=== PATIENT | male | born 1995 | race Two or more races ===

== ENCOUNTER 2025-09-24 04:43 | Inpatient (IN) | payer MEDICAID, OTHER ==
[~2025-09-24] VITALS: Ht 182.9 cm; Wt 95.5 kg
[2025-09-24 05:31] LABS: Hemoglobin 19.5 g/dL (13.5-17.5); Mean Corpuscular Hemoglobin 31.5 pg (28.0-32.0); Mean Corpuscular Volume 91.6 fL (80.0-100.0); Nucleated Red Blood Cells % 0.3 %
[2025-09-24 05:33] LABS: Potassium 3.8 mmol/L (3.5-5.1); Sodium 143 mmol/L (136-145)
[2025-09-24 05:34] LABS: Anion Gap 12 (5-15); Calcium 9.2 mg/dL (8.7-10.4); Carbon Dioxide 22 mmol/L (20-31)
[2025-09-24 05:35] LABS: Hematocrit 56.6 % (41.0-53.0)
[2025-09-24 05:37] LABS: Chloride 109 mmol/L (98-107)
[2025-09-24 05:39] LABS: BUN/Creatinine Ratio 8.2 (10.0-20.0); Glucose 95 mg/dL (74-106)
[2025-09-24 05:46] LABS: Blood Urea Nitrogen 7 mg/dL (9-23)
[2025-09-24] MEDS: IOHEXOL 300 MG/ML 100ML BOTTLE IJ ONE (05:57)
--- NOTE | 2025-09-24 06:22 | ED.PDOC ---
GI ASSESSMENT HPI Comments This is a 30 year-old male who presents to the ED with a chief complaint of rectal pain and constipation for X5 days. Patient reports no BM for X5 days due to intense rectal pain. Patient reports this happening before, X4 years ago, where rectal pain was caused by cyst the size of a quarter. Patient reports he usually has a BM daily. Patient has no further complaints at this time and otherwise denies further associated symptoms of fever, chills, N/V/D, or fatigue. Chief Complaint: Rectal Pain Time Seen by MD: 06:26 Reviewed Notes: Nurses Notes, Medications, Allergies Allergies: Coded Allergies: NO KNOWN ALLERGIES (Unverified , 09/24/25) Information Source: Patient Mode of Arrival: Ambulatory Timing: Days Duration: Since onset Severity: Moderate Associated sign and symptoms: Constipation, Other (rectal pain ) Past Medical History PAST MEDICAL HISTORY: Denies Surgical History: Denies all surgeries Family History Family History: Reviewed,noncontributory to illness, No family hx of Cancer, No family hx of DM, No family hx of Heart ariadna, No family hx of HTN, No family hx ofKidney ariadna, No family hx of Liver ariadna, No family hx of Lung ariadna, No family hx of Stroke Social History Smoker: Non-Smoker Alcohol: Denies ETOH Use Drugs: Denies Drug Use Lives In: Home Constitutional: denies: chills, diaphoresis, fatigue, fever, malaise, sweats, weakness, others EENTM: denies: blurred vision, double vision, ear bleeding, ear discharge, ear drainage, ear pain, ear ringing, eye pain, eye redness, hearing loss, mouth pain , mouth swelling, nasal discharge, nose bleeding, nose congestion, nose pain, photophobia, tearing, throat pain, throat swelling, voice changes, others Respiratory: denies: cough, hemoptysis, orthopnea, SOB at rest, shortness of breath, SOB with excertion, stridor, wheezing, others Cardiovascular: denies: chest pain, dizzy spells, diaphoresis, Dyspnea on exertion, edema, irregular heart beat, left arm pain, lightheadedness, palpitations, PND, syncope, others Gastrointestinal: reports: constipated, rectal pain; denies: abdomen distended, abdominal pain, blood streaked bowels, diarrhea, dysphagia, difficulty swallowing, hematemesis, melena, nausea, poor appetite, poor fluid intake, rectal bleeding, vomiting, others Genitourinary: denies: burning, dysuria, flank pain, frequency, hematuria, incontinence, penile discharge, penile sore, pain, testicle pain, testicle swelling, urgency, others Neurological: denies: dizziness, fainting, headache, left sided numbness, left sided weakness, numbness, paresthesia, pre-existing deficit, right sided numbness, right sided weakness, seizure, speech problems, tingling, tremors, weakness, others Musculoskeletal: denies: back pain, gout, joint pain, joint swelling, muscle pain, muscle stiffness, neck pain, others Integumetry: denies: bruises, change in color, change in hair/nails, dryness, laceration, lesions, lumps, rash, wounds, others Allergic/Immunocompromised: denies: Difficulty Healing, Frequent Infections, Hives, Itching, others Hematologic/Lymphatic: denies: anemia, blood clots, easy bleeding, easy bruising, swollen glands, others Endocrine: denies: excessive hunger, excessive sweating, excessive thirst, excessive urination, flushing, intolerance to cold, intolerance to heat, unexplained weight gain, unexplained weight loss, others Psychiatric: denies: anxiety, bipolar disorder, depression, hopeless, panic disorder, schizophrenia, sleepless, suicidal, others All Other Systems: Reviewed and Negative Physical Exam General Appearance: Moderate Distress HEENT: Normal ENT Inspection, Pharynx Normal, TMs Normal Neck: Full Range of Motion, Non-Tender, Normal, Normal Inspection Respiratory: Chest Non-Tender, Lungs Clear, No Accessory Muscle Use, No Respiratory Distress, Normal Breath Sounds Cardiovascular: No Edema, No JVD, No Murmur, No Gallop, Normal Peripheral Pulses, Regular Rate/Rhythm Breast Exam: Deferred Gastrointestinal: No Organomegaly, Non Tender, No Pulsatile Mass, Normal Bowel Sounds, Soft Genitalia: Deferred Pelvic: Deferred Rectal: Deferred Extremities: No calf tenderness, Normal capillary refill, Normal inspection, Normal range of motion, Non-tender, No pedal edema Musculoskeletal : Apperance: Normal Neurologic: Alert, electronics engineering technologist II-XII nml as Tested, No Motor Deficits, Normal Affect, Normal Mood, No Sensory Deficits Cerebellar Function: Normal Reflexes: Normal Skin: Dry, Normal Color, Warm Peripheral Pulses: 3+ Radial (R), 3+ Radial (L) Lymphatic: No Adenopathy Was a procedure done? Was a procedure done?: No GI differential Dx Differential Diagnosis: Constipation, Diverticular disease, Esophagitis, Gastritis/PUD, Gastroenteritis, Inflammatory BD, Dehydration, Food Poisoning, Bacterial, Parasitic, Viral X-Ray, Labs, Meds, VS Vital Signs Date Time Temp Pulse Resp B/P (MAP) Pulse Ox O2 Delivery O2 Flow Rate FiO2 09/24/25 05:18 94 20 95 Room Air 09/24/25 04:54 98.2 94 20 122/80 95 98.2 Lab Test 09/24/25 05:10 Range/Units White Blood Count 8.3 4.4-10.8 10^3/uL Red Blood Count 6.18 H 4.5-5.90 10^6/uL Hemoglobin 19.5 H 13.5-17.5 g/dL Hematocrit 56.6 H 41.0-53.0 % Mean Corpuscular Volume 91.6 80.0-100.0 fL Mean Corpuscular Hemoglobin 31.5 28.0-32.0 pg Mean Corpuscular Hemoglobin Concent 34.4 32.0-36.0 g/dL Red Cell Distribution Width 14.0 11.8-14.3 % Platelet Count 285 140-450 10^3/uL Mean Platelet Volume 8.2 6.9-10.8 fL Neutrophils (%) (Auto) 56.2 37.0-80.0 % Lymphocytes (%) (Auto) 35.6 10.0-50.0 % Monocytes (%) (Auto) 6.0 0.0-12.0 % Eosinophils (%) (Auto) 1.4 0.0-7.0 % Basophils (%) (Auto) 0.8 0.0-2.0 % Neutrophils # (Auto) 4.7 1.6-8.6 10 ^3/uL Lymphocytes # (Auto) 3.0 0.4-5.4 10 ^3/uL Monocytes # (Auto) 0.5 0-1.3 10 ^3/uL Eosinophils # (Auto) 0.1 0-0.8 10 ^3/uL Basophils # (Auto) 0.1 0-0.2 10 ^3/uL Nucleated Red Blood Cells 0.3 % Sodium Level 143 136-145 mmol/L Potassium Level 3.8 3.5-5.1 mmol/L Chloride Level 109 H 98-107 mmol/L Carbon Dioxide Level 22 20-31 mmol/L Anion Gap 12 5-15 Blood Urea Nitrogen 7 L 9-23 mg/dL Creatinine 0.85 0.700-1.30 mg/dL Glomerular Filtration Rate Calc 119 >90 mL/min BUN/Creatinine Ratio 8.2 L 10.0-20.0 Serum Glucose 95 74-106 mg/dL Lactic Acid Level 1.8 0.4-2.0 mmol/L Calcium Level 9.2 8.7-10.4 mg/dL [place] [address] Ph: [phone] DIAGNOSTIC IMAGING Diagnostic Imaging Report : [id number] Signed PATIENT: SALINA ABBOTTCCT: [id number] UNIT: [id number] : 1995 LOC: ER ROOM / BED: / AGE / SEX: 30 / M ADM STATUS: REG ER SERVICE 0501 ORDERING PHYSICIAN: KAREN LIVINGSTON DO PROCEDURE(s): ABPLIV - CT AB PEL WITH IV CON ONLY REASON: rectal pain, rectal cyst ORDER NUMBER(s): [id number], ACCESSION NUMBER(s): [id number] Exam: CT CT AB PEL WITH IV CON ONLY History: rectal pain, rectal cyst Comparison Study: None Contrast: 100 cc of Omnipaque 300 TECHNIQUE: CT imaging of the abdomen and pelvis was obtained following the administration of intravenous contrast. Coronal and sagittal reformatted images were reviewed. All CT scans at this medical facility are performed using dose modulation techniques as appropriate to a performed exam including the following: Automated exposure control was utilized; adjustment of the MA and/or KV according to patient size; and use of iterative reconstruction technique. Radiation Dose Information: CT Dose: CTDI volume is 15.93 mGy. Dose-length product is 1142.41 mGy.cm mGy*cm FINDINGS: Imaged portions of the lung bases appear unremarkable. There is diffuse hepatic steatosis. Gallbladder appears mildly prominent without pericholecystic fluid or wall thickening. Spleen, pancreas, and adrenal glands appear unremarkable. The kidneys enhance symmetrically. No evidence of bowel obstruction or focal bowel wall thickening. The appendix appears normal. Scattered colonic diverticulosis. No free fluid, free air, or adenopathy. The prostate gland appears normal in size. Specific attention to the rectum reveals no suspicious abnormality. At the anus, there is mild fullness measuring 0.9 cm. No significant fat stranding or air. IMPRESSION: 1. No acute abnormality identified in the abdomen or pelvis. 2. Mild fullness at the anus measuring 0.9 cm. Correlation with clinical exam is recommended no significant fat stranding or air. 3. Hepatic steatosis. Patient alert. Came in because of rectal pain. Possible cyst. Vitals stable. Answering questions. CT of the abdomen pelvis does not reveal any acute process possibly assist. Surgical consultation. Was given pain medication. Explained to the patient. Continue monitoring. Time of 1ST Reevaluation: 07:15 Reevaluation 1ST: Unchanged Patient Education/Counseling: Diagnosis, Treatment Family Education/Counseling: No Family Present SEPSIS Sepsis Screen Date sepsis recognized/suspect: Sep 24, 2025 Time Sepsis recognized/suspect: 453 Recent Procedure: No On Antibiotic Therapy: No Respiratory Rate >20: No Heart Rate >90: Yes Temp<36 C (96.8 F) or >38.3 C: No SBP <90 or MAP <65 mmHG: No New Acute Mental Status Change: No Is the patient on CPAP, BIPAP,: No Physician Orders Ct Ab Pel With Iv Con Only (09/24/25 05:01) Vital Signs Date Time Temp Pulse Resp B/P (MAP) Pulse Ox O2 Delivery O2 Flow Rate FiO2 09/24/25 05:18 94 20 95 Room Air 09/24/25 04:54 98.2 94 20 122/80 95 98.2 Laboratory Tests Test 09/24/25 05:10 Lactic Acid Level 1.8 mmol/L (0.4-2.0) White Blood Count 8.3 10^3/uL (4.4-10.8) Departure 1 Departure Time of Disposition: 07:12 Impression: Primary Impression: Rectal cyst Disposition: ADMITTED INPATIENT Admit to: Med Surg Condition: Guarded Critical Care Note Critical Care Time?: No Stability Stability form required: No Heart Score Heart Score: Heart Score Response (Comments) Value History N/A 0 EKG N/A 0 Age N/A 0 Risk Factors N/A 0 Troponin N/A 0 Total 0 I personally scribed for CARLA VASQUES MD ([email or web address]) on 09/24/25 at 06:22. Electronically submitted by An Phillips ([email or web address]). I personally scribed for CARLA VASQUES MD ([email or web address]) on 09/24/25 at 06:52. Electronically submitted by An Phillips ([email or web address]). CARLA VASQUES MD Sep 24, 2025 06:22
--- NOTE | 2025-09-24 06:40 | DVH ---
Exam: CT CT AB PEL WITH IV CON ONLY History: rectal pain, rectal cyst Comparison Study: None Contrast: 100 cc of Omnipaque 300 TECHNIQUE: CT imaging of the abdomen and pelvis was obtained following the administration of intraven ous contrast. Coronal and sagittal reformatted images were reviewed. All CT scans at this medical facility are performed using dose modulation techniques as appropriate t o a performed exam including the following: Automated exposure control was utilized; adjustment of th e MA and/or KV according to patient size; and use of iterative reconstruction technique. Radiation Dose Information: CT Dose: CTDI volume is 15.93 mGy. Dose-length product is 1142.41 mGy.cm mGy*cm FINDINGS: Imaged portions of the lung bases appear unremarkable. There is diffuse hepatic steatosis. Gallbladder appears mildly prominent without pericholecystic flui d or wall thickening. Spleen, pancreas, and adrenal glands appear unremarkable. The kidneys enhance symmetrically. No evidence of bowel obstruction or focal bowel wall thickening. The appendix appears normal. Scatt ered colonic diverticulosis. No free fluid, free air, or adenopathy. The prostate gland appears norm al in size. Specific attention to the rectum reveals no suspicious abnormality. At the anus, there is mild fullne ss measuring 0.9 cm. No significant fat stranding or air. IMPRESSION: 1. No acute abnormality identified in the abdomen or pelvis. 2. Mild fullness at the anus measuring 0.9 cm. Correlation with clinical exam is recommended no signi ficant fat stranding or air. 3. Hepatic steatosis.
[2025-09-24] MEDS: KETOROLAC TROMETH 30 MG/ML 1ML VIAL IV ONE (07:36)
[2025-09-24 07:46] VITALS: PULSE 64; RESP 16; O2SAT 95
--- NOTE | 2025-09-24 08:26 | DVHHPRES ---
History of Present Illness Resident Creating Document: NIVIA PEDERSON History of Present Illness Raudel Trevino is a 30 year old male patient who presents to the ED with chief complaint of constipation for the past five days associated with perirectal pain. Patient reports history of rectal cyst status postop proximally seven years ago, symptoms are similar to when he had the perirectal cyst removed. Patient also reports weeks urine stream but no dysuria, nausea, vomiting, fever, chills or any other associated symptoms. Past medical history: Rectal cyst status postop Surgical history: Left forearm radial reconstruction after trauma. Rectal cyst removal seven years ago Family history: Noncontributory Social history: Lives in [place] with family (next of kin mother). Drink five shots of vodka the day he drinks (normally during weekends). Smokes marijuana occasionally. Denies current tobacco and other drug abuse. Allergies: Denies Home medication: Stool softeners Patient seen and examined at bedside. Currently has no other new complaints. Patient did take stool softeners and had small bowel movement on 09/24/2025 Past Medical History Per HPI Past Surgical History Per HPI Family History Per HPI Past Social History Per HPI Review of Systems Review of Systems Per HPI Allergies: Coded Allergies: NO KNOWN ALLERGIES (Unverified , 09/24/25) Exam Vital Signs Vital Signs Date Time Temp Pulse Resp B/P (MAP) Pulse Ox O2 Delivery O2 Flow Rate FiO2 09/24/25 07:46 64 16 95 Room Air* 0 21 09/24/25 07:45 98.2 112/73 (86) 98.2 Exam Patient lying in bed, in no acute distress General: Lucid, afebrile, mucosae are moist Cardiovascular: Normal S1 and S2. No murmurs, gallops or rubs Respiratory: Normal ventilation mechanics. Clear lung sounds on auscultation Abdomen: Soft, nontender, no organomegaly, normal bowel sounds. Completed digital rectal exam with palpation of hard mass in hour 11:00 a.m., no fluctuating masses, nor erythema seen, no fecal impaction, prostate is elastic on palpation. MSK/skin: Mobilizes 4 limbs. Skin is dry and warm Neurological: Oriented in 3 spheres. No motor no sensitive deficits. Pupils are isocoric and reactive Labs/Xrays Labs Test 09/24/25 05:10 Range/Units White Blood Count 8.3 4.4-10.8 10^3/uL Red Blood Count 6.18 H 4.5-5.90 10^6/uL Hemoglobin 19.5 H 13.5-17.5 g/dL Hematocrit 56.6 H 41.0-53.0 % Mean Corpuscular Volume 91.6 80.0-100.0 fL Mean Corpuscular Hemoglobin 31.5 28.0-32.0 pg Mean Corpuscular Hemoglobin Concent 34.4 32.0-36.0 g/dL Red Cell Distribution Width 14.0 11.8-14.3 % Platelet Count 285 140-450 10^3/uL Mean Platelet Volume 8.2 6.9-10.8 fL Neutrophils (%) (Auto) 56.2 37.0-80.0 % Lymphocytes (%) (Auto) 35.6 10.0-50.0 % Monocytes (%) (Auto) 6.0 0.0-12.0 % Eosinophils (%) (Auto) 1.4 0.0-7.0 % Basophils (%) (Auto) 0.8 0.0-2.0 % Neutrophils # (Auto) 4.7 1.6-8.6 10 ^3/uL Lymphocytes # (Auto) 3.0 0.4-5.4 10 ^3/uL Monocytes # (Auto) 0.5 0-1.3 10 ^3/uL Eosinophils # (Auto) 0.1 0-0.8 10 ^3/uL Basophils # (Auto) 0.1 0-0.2 10 ^3/uL Nucleated Red Blood Cells 0.3 % Sodium Level 143 136-145 mmol/L Potassium Level 3.8 3.5-5.1 mmol/L Chloride Level 109 H 98-107 mmol/L Carbon Dioxide Level 22 20-31 mmol/L Anion Gap 12 5-15 Blood Urea Nitrogen 7 L 9-23 mg/dL Creatinine 0.85 0.700-1.30 mg/dL Glomerular Filtration Rate Calc 119 >90 mL/min BUN/Creatinine Ratio 8.2 L 10.0-20.0 Serum Glucose 95 74-106 mg/dL Lactic Acid Level 1.8 0.4-2.0 mmol/L Calcium Level 9.2 8.7-10.4 mg/dL SEPSIS Sepsis Screen Date sepsis recognized/suspect: Sep 24, 2025 Time Sepsis recognized/suspect: 0454 Recent Procedure: No On Antibiotic Therapy: No Respiratory Rate >20: No Heart Rate >90: Yes Temp<36 C (96.8 F) or >38.3 C: No SBP <90 or MAP <65 mmHG: No New Acute Mental Status Change: No Is the patient on CPAP, BIPAP,: No Physician Orders Ct Ab Pel With Iv Con Only (09/24/25 05:01) Vital Signs Date Time Temp Pulse Resp B/P (MAP) Pulse Ox O2 Delivery O2 Flow Rate FiO2 09/24/25 07:46 64 16 95 Room Air* 0 21 09/24/25 07:45 98.2 62 16 112/73 (86) 95 98.2 09/24/25 05:18 94 20 95 Room Air 09/24/25 04:54 98.2 94 20 122/80 95 98.2 Laboratory Tests Test 09/24/25 05:10 Lactic Acid Level 1.8 mmol/L (0.4-2.0) White Blood Count 8.3 10^3/uL (4.4-10.8) Medications Medications Dose Ordered Sig/Emile Route Start Time Stop Time Status Last Admin Dose Admin Ketorolac Tromethamine 30 mg ONCE ONCE IV 09/24/25 07:15 09/24/25 07:16 DC 09/24/25 07:36 30 MG Assessment/Plan Assessment/Plan ASSESSMENT Rule out perirectal abscess Probable rectal cyst Constipation Ruled out bowel obstruction Hepatic steatosis History of rectal cyst - s/p resection Ethanol abuse Polycythemia PLAN Indicated IV fluids, patient initially NPO, currently progress to clear liquid diet Obtain abdomen and pelvis CT which shows mild fullness of anus of 0.9 cm with no fat stranding. Obtain pancultures (blood, stool, urine) Hold on and IV antibiotics since patient is septic. Completed digital rectal exam which evidence palpable 11:00 a.m. mass that is non fluctuating, nor erythema. Consulted surgical technologist. Indicated stool softeners/laxatives Goals of care discussed with patient for over 18 minutes: Full code status Discussed plan with Dr. Arias, patient and nurses: Patient will be admitted to [facility]. Consulted surgical technologist to evaluate perirectal mass. Ordered pancultures, hold on IV antibiotics since there are no clear signs of s epsis. Plan discussed with: Patient, Other (Nurses) Date of Service: Sep 24, 2025 Billing Provider: MARTY ARIAS MD Common Visit Codes: 54725-[id number] INP/OBS CARE (HIGH) Secondary Visit Codes: 83966-[id number] CARE PLAN 30 MINUTES NIVIA PEDERSON RESIDENT Sep 24, 2025 08:26
[2025-09-24] MEDS ORDERED: ACETAMINOPHEN 325 MG TAB PO PRN (08:30)
[2025-09-24] MEDS ORDERED: MORPHINE SULFATE INJ 2 MG/ml SYRG IV PRN (08:30)
[2025-09-24] MEDS ORDERED: POLYETHYLENE GLYCOL 17 GM PWDR PO PRN (08:30)
[2025-09-24 09:36] LABS: INR 1.04 (0.9-1.15); Partial Thromboplastin Time 28.3 SEC (24.5-34.5); Prothrombin Time 11.0 sec (9.3-11.8)
[2025-09-24 09:55] LABS: Magnesium 2.2 mg/dL (1.6-2.6); Triglycerides 227.0 mg/dL (< 150)
[2025-09-24 09:56] LABS: HDL Cholesterol 53.0 mg/dL (40-59)
[2025-09-24 09:57] LABS: Cholesterol 216.0 mg/dL (< 200)
[2025-09-24 10:00] VITALS: BP 127/91; PULSE 60; RESP 17; TEMP 98; O2SAT 97
[2025-09-24] MEDS: ENOXAPARIN SOD 40 MG/0.4 ML SYRINGE SC SCH (10:00)
[2025-09-24 10:07] VITALS: BP 127/91; PULSE 60; RESP 17; TEMP 98; O2SAT 97
[2025-09-24 10:15] LABS: Lipase 48.0 U/L (12-53)
[2025-09-24] MEDS: SODIUM CHLORIDE 0.9% 1,000 ML IV ONE (10:40)
[2025-09-24 10:53] LABS: Albumin 4.7 g/dL (3.2-4.8); Alkaline Phosphatase 104.0 U/L (46-116); Bilirubin, Direct 0.2 mg/dL (<0.3); Bilirubin, Total 0.6 mg/dL (0.2-1.0); Total Protein 7.7 g/dL (5.7-8.2)
[2025-09-24 11:08] LABS: Alanine Aminotransferase 105.0 U/L (7-40)
[2025-09-24 11:14] LABS: Urine Protein, UAD TRACE (Negative)
[2025-09-24 11:19] LABS: Cannabinoid Screen, Urine Pos (NEGATIVE)
[2025-09-24 11:21] LABS: Amphetamine Screen, Urine Neg (NEGATIVE); Barbiturate Scree,Urine Neg (NEGATIVE); Benzodiazephine Screen, Urine Neg (NEGATIVE); Cocaine Screen, Urine Neg (NEGATIVE); Opiate Scree,Urine Neg (NEGATIVE); Phencyclidine Screen, Urine Neg (NEGATIVE)
[2025-09-24] MEDS: SODIUM CHLORIDE 0.9% 1,000 ML IV SCH (11:41)
[2025-09-24 12:54] VITALS: BP 115/70; PULSE 75; RESP 17; TEMP 97.8; O2SAT 95
[2025-09-24 20:00] VITALS: PULSE 64; RESP 17; O2SAT 95
[2025-09-24 21:00] VITALS: BP_SYST 124; BP_SYST 148; BP_DIAS 72; BP_DIAS 93; PULSE 62; PULSE 64; RESP 17; RESP 18; TEMP 97.6; TEMP 98.5; O2SAT 97; O2SAT 99
[2025-09-25 05:00] VITALS: BP 133/76; PULSE 72; RESP 17; TEMP 97.8; O2SAT 98
[2025-09-25 06:26] LABS: Hematocrit 52.1 % (41.0-53.0); Hemoglobin 18.2 g/dL (13.5-17.5); Mean Corpuscular Hemoglobin 31.9 pg (28.0-32.0); Mean Corpuscular Volume 91.3 fL (80.0-100.0); Nucleated Red Blood Cells % 0.2 %
[2025-09-25 06:51] LABS: Albumin 4.3 g/dL (3.2-4.8); Alkaline Phosphatase 85 U/L (46-116); Anion Gap 13 (5-15); BUN/Creatinine Ratio 9.2 (10.0-20.0); Calcium 9.5 mg/dL (8.7-10.4); Carbon Dioxide 24 mmol/L (20-31); Chloride 103 mmol/L (98-107); Glucose 77 mg/dL (74-106); Potassium 4.1 mmol/L (3.5-5.1); Sodium 140 mmol/L (136-145); Total Protein 6.9 g/dL (5.7-8.2)
[2025-09-25 07:04] LABS: Alanine Aminotransferase 100 U/L (7-40); Bilirubin, Total 1.7 mg/dL (0.2-1.0); Blood Urea Nitrogen 7 mg/dL (9-23)
[2025-09-25] MEDS ORDERED: AMPICILLIN & SULBACTAM SODIUM 3 GM in SODIUM CHL 0.9% 100 ML IV SCH (13:00)
--- NOTE | 2025-09-25 13:49 | DVHINCON2 ---
Date of service: Sep 25, 2025 History of Present Illness 30-year-old male with a previous history of rectal cyst removal approximately seven years ago complaining of constipation. Denies any rectal bleeding. Past Medical History None Past Surgical History Removal of rectal cyst however the exact surgery is unclear Family History Noncontributory Social History Denies alcohol, tobacco, IV drug use Allergies: Coded Allergies: NO KNOWN ALLERGIES (Unverified , 09/24/25) Current Medications Current Medications Medications (Trade) Dose Ordered Sig/Emile Route PRN Reason Start Time Stop Time Status Last Admin Ampicillin Sodium/ Sulbactam Sodium 3 gm/Sodium Chloride 100 ml @ 100 mls/hr Q6H IV 09/25/25 13:00 Vital Signs Vital Signs Date Time Temp Pulse Resp B/P (MAP) Pulse Ox O2 Delivery O2 Flow Rate FiO2 09/25/25 08:00 Room Air* 0 21 09/25/25 05:00 97.8 72 17 133/76 (95) 98 97.8 Physical Exam GEN: Age-appropriate male in no acute distress. Alert. HEENT: Normocephalic atraumatic. Moist mucous membranes. Anicteric sclerae. CV: RRR Respiratory: CTAB ABD: Soft. Nontender nondistended Rectal: There was a proximally 5 x 3 cm soft tissue likely lipoma in the perianal region not causing an obstruction. Good sphincter tone with no obvious anal or rectal obstruction. Prostate is not enlarged. CT of the abdomen and pelvis: No acute abnormality in the abdomen or pelvis. Mild fullness of the anus measuring 0.9 cm. Labs/Diagnostic Data Labs Test 09/25/25 05:36 09/24/25 10:15 09/24/25 10:00 09/24/25 05:10 Range/Units White Blood Count 9.4 4.4-10.8 10^3/uL Red Blood Count 5.71 4.5-5.90 10^6/uL Hemoglobin 18.2 H 13.5-17.5 g/dL Hematocrit 52.1 41.0-53.0 % Mean Corpuscular Volume 91.3 80.0-100.0 fL Mean Corpuscular Hemoglobin 31.9 28.0-32.0 pg Mean Corpuscular Hemoglobin Concent 35.0 32.0-36.0 g/dL Red Cell Distribution Width 13.5 11.8-14.3 % Platelet Count 248 140-450 10^3/uL Mean Platelet Volume 8.5 6.9-10.8 fL Neutrophils (%) (Auto) 75.7 37.0-80.0 % Lymphocytes (%) (Auto) 16.4 10.0-50.0 % Monocytes (%) (Auto) 7.0 0.0-12.0 % Eosinophils (%) (Auto) 0.3 0.0-7.0 % Basophils (%) (Auto) 0.6 0.0-2.0 % Neutrophils # (Auto) 7.1 1.6-8.6 10 ^3/uL Lymphocytes # (Auto) 1.5 0.4-5.4 10 ^3/uL Monocytes # (Auto) 0.7 0-1.3 10 ^3/uL Eosinophils # (Auto) 0 0-0.8 10 ^3/uL Basophils # (Auto) 0.1 0-0.2 10 ^3/uL Nucleated Red Blood Cells 0.2 % Sodium Level 140 136-145 mmol/L Potassium Level 4.1 3.5-5.1 mmol/L Chloride Level 103 98-107 mmol/L Carbon Dioxide Level 24 20-31 mmol/L Anion Gap 13 5-15 Blood Urea Nitrogen 7 L 9-23 mg/dL Creatinine 0.76 0.700-1.30 mg/dL Glomerular Filtration Rate Calc 123 >90 mL/min BUN/Creatinine Ratio 9.2 L 10.0-20.0 Serum Glucose 77 74-106 mg/dL Calcium Level 9.5 8.7-10.4 mg/dL Total Bilirubin 1.7 H 0.2-1.0 mg/dL Aspartate Amino Transferase (AST) 55 H 13-40 U/L Alanine Aminotransferase (ALT) 100 H 7-40 U/L Alkaline Phosphatase 85 46-116 U/L Total Protein 6.9 5.7-8.2 g/dL Albumin 4.3 3.2-4.8 g/dL Urine Color Yellow Yellow Urine Clarity Clear Clear Urine pH 5.5 5.0-9.0 Urine Specific [place] > 1.050 H 1.001-1.035 Urine Protein Trace H Negative Urine Ketones 1+ H Negative Urine Blood Negative Negative /uL Urine Nitrite Negative Negative Urine Bilirubin Negative Negative Urine Urobilinogen Normal Negative mg/dL Urine Leukocyte Esterase Negative Negative /uL Urine RBC 3 0 - 3 /hpf Urine Microscopic WBC < 1 0-3 /HPF Urine Squamous Epithelial Cells Few <5 /hpf Urine Bacteria Few H None Seen /hpf Urine Mucus Few None Seen Urine Glucose Normal Normal mg/dL Urine Opiates Screen Neg NEGATIVE Urine Fentanyl Screen Neg NEGATIVE Urine Barbiturates Screen Neg NEGATIVE Urine Phencyclidine Screen Neg NEGATIVE Urine Amphetamines Screen Neg NEGATIVE Urine Benzodiazepines Screen Neg NEGATIVE Urine Cocaine Screen Neg NEGATIVE Urine Cannabinoids Screen Pos NEGATIVE Direct Bilirubin 0.2 <0.3 mg/dL Plasma/Serum Blood Alcohol 205.2 H <10 mg/dL Prothrombin Time 11.0 9.3-11.8 sec Prothrombin Time INR 1.04 0.9-1.15 Activated Partial Thromboplast Time 28.3 24.5-34.5 SEC Hemoglobin A1c 5.0 <5.7 % A1C Lactic Acid Level 1.8 0.4-2.0 mmol/L Phosphorus Level 3.5 2.4-5.1 mg/dL Magnesium Level 2.2 1.6-2.6 mg/dL Triglycerides Level 227 H < 150 mg/dL Cholesterol Level 216 H < 200 mg/dL LDL Cholesterol 144 H < 100 mg/dL HDL Cholesterol 53 40-59 mg/dL Lipase 48 12-53 U/L Vitamin B12 Level 617 211-911 pg/mL Vitamin D 25-Hydroxy 6.3 L 30.0-100 ng/mL Thyroid Stimulating Hormone (TSH) 3.01 0.55-4.78 uIU/mL Microbiology Date/Time Source Procedure Growth Status 09/24/25 10:15 Voided Urine Urine Culture - Preliminary Resulted 09/24/25 10:10 Blood Blood Culture - Preliminary NO GROWTH AFTER 24 HOURS OF INCUBATION. Resulted Assessment 1. No obvious rectal mass. 2. Small soft perianal soft tissue neoplasm likely lipoma or postsurgical changes. Plan/Recommendation No acute indication for surgical intervention at this time. I recommend elective colonoscopy patient continues to have symptoms of constipation. Plan discussed with: Patient MULUGETA AMBRIZ MD Sep 25, 2025 13:49
--- NOTE | 2025-09-25 14:29 | DVHDS2 ---
Discharge Summary Date of Admission Sep 24, 2025 at 08:26 Date of Discharge: Sep 25, 2025 Labs/Diagnostic Data: Laboratory Results Test 09/25/25 05:36 09/24/25 10:15 09/24/25 10:00 09/24/25 05:10 White Blood Count 9.4 10^3/uL (4.4-10.8) Red Blood Count 5.71 10^6/uL (4.5-5.90) Hemoglobin 18.2 g/dL (13.5-17.5) Hematocrit 52.1 % (41.0-53.0) Mean Corpuscular Volume 91.3 fL (80.0-100.0) Mean Corpuscular Hemoglobin 31.9 pg (28.0-32.0) Mean Corpuscular Hemoglobin Concent 35.0 g/dL (32.0-36.0) Red Cell Distribution Width 13.5 % (11.8-14.3) Platelet Count 248 10^3/uL (140-450) Mean Platelet Volume 8.5 fL (6.9-10.8) Neutrophils (%) (Auto) 75.7 % (37.0-80.0) Lymphocytes (%) (Auto) 16.4 % (10.0-50.0) Monocytes (%) (Auto) 7.0 % (0.0-12.0) Eosinophils (%) (Auto) 0.3 % (0.0-7.0) Basophils (%) (Auto) 0.6 % (0.0-2.0) Neutrophils # (Auto) 7.1 10 ^3/uL (1.6-8.6) Lymphocytes # (Auto) 1.5 10 ^3/uL (0.4-5.4) Monocytes # (Auto) 0.7 10 ^3/uL (0-1.3) Eosinophils # (Auto) 0 10 ^3/uL (0-0.8) Basophils # (Auto) 0.1 10 ^3/uL (0-0.2) Nucleated Red Blood Cells 0.2 % Sodium Level 140 mmol/L (136-145) Potassium Level 4.1 mmol/L (3.5-5.1) Chloride Level 103 mmol/L (98-107) Carbon Dioxide Level 24 mmol/L (20-31) Anion Gap 13 (5-15) Blood Urea Nitrogen 7 mg/dL (9-23) Creatinine 0.76 mg/dL (0.700-1.30) Glomerular Filtration Rate Calc 123 mL/min (>90) BUN/Creatinine Ratio 9.2 (10.0-20.0) Serum Glucose 77 mg/dL (74-106) Calcium Level 9.5 mg/dL (8.7-10.4) Total Bilirubin 1.7 mg/dL (0.2-1.0) Aspartate Amino Transferase (AST) 55 U/L (13-40) Alanine Aminotransferase (ALT) 100 U/L (7-40) Alkaline Phosphatase 85 U/L (46-116) Total Protein 6.9 g/dL (5.7-8.2) Albumin 4.3 g/dL (3.2-4.8) Urine Color Yellow (Yellow) Urine Clarity Clear (Clear) Urine pH 5.5 (5.0-9.0) Urine Specific [place] > 1.050 (1.001-1.035) Urine Protein Trace (Negative) Urine Ketones 1+ (Negative) Urine Blood Negative /uL (Negative) Urine Nitrite Negative (Negative) Urine Bilirubin Negative (Negative) Urine Urobilinogen Normal mg/dL (Negative) Urine Leukocyte Esterase Negative /uL (Negative) Urine RBC 3 /hpf (0 - 3) Urine Microscopic WBC < 1 /HPF (0-3) Urine Squamous Epithelial Cells Few /hpf (<5) Urine Bacteria Few /hpf (None Seen) Urine Mucus Few (None Seen) Urine Glucose Normal mg/dL (Normal) Urine Opiates Screen Neg (NEGATIVE) Urine Fentanyl Screen Neg (NEGATIVE) Urine Barbiturates Screen Neg (NEGATIVE) Urine Phencyclidine Screen Neg (NEGATIVE) Urine Amphetamines Screen Neg (NEGATIVE) Urine Benzodiazepines Screen Neg (NEGATIVE) Urine Cocaine Screen Neg (NEGATIVE) Urine Cannabinoids Screen Pos (NEGATIVE) Direct Bilirubin 0.2 mg/dL (<0.3) Plasma/Serum Blood Alcohol 205.2 mg/dL (<10) Prothrombin Time 11.0 sec (9.3-11.8) Prothrombin Time INR 1.04 (0.9-1.15) Activated Partial Thromboplast Time 28.3 SEC (24.5-34.5) Hemoglobin A1c 5.0 % A1C (<5.7) Lactic Acid Level 1.8 mmol/L (0.4-2.0) Phosphorus Level 3.5 mg/dL (2.4-5.1) Magnesium Level 2.2 mg/dL (1.6-2.6) Triglycerides Level 227 mg/dL (< 150) Cholesterol Level 216 mg/dL (< 200) LDL Cholesterol 144 mg/dL (< 100) HDL Cholesterol 53 mg/dL (40-59) Lipase 48 U/L (12-53) Vitamin B12 Level 617 pg/mL (211-911) Vitamin D 25-Hydroxy 6.3 ng/mL (30.0-100) Thyroid Stimulating Hormone (TSH) 3.01 uIU/mL (0.55-4.78) Other Laboratory Tests 09/25/25 05:36 Brief Hx & Hospital Course: Raudel Trevino is a 30 year old male patient who presents to the ED with chief complaint of constipation for the past five days associated with perirectal pain. Patient reports history of rectal cyst status postop proximally seven years ago, symptoms are similar to when he had the perirectal cyst removed. Patient also reports weeks urine stream but no dysuria, nausea, vomiting, fever, chills or any other associated symptoms. Past medical history: Rectal cyst status postop Surgical history: Left forearm radial reconstruction after trauma. Rectal cyst removal seven years ago ASSESSMENT Rule out perirectal abscess Probable rectal cyst Constipation Ruled out bowel obstruction Hepatic steatosis History of rectal cyst - s/p resection Ethanol abuse Polycythemia 09/25: Patient is seen by surgery, thereafter patient decides to AMA. In doing so patient assumes all risks including as he leaves AMA. Condition at Discharge: Undetermined Final Diagnosis/Problems List Rule out perirectal abscess Probable rectal cyst Constipation Ruled out bowel obstruction Hepatic steatosis History of rectal cyst - s/p resection Ethanol abuse Polycythemia Discharge Disposition: AMA Discharge Statement: "Patient was advised to return to the ER or call 911 if any headaches, dizziness, shortness of breath, chest pain, abdominal pain, bleeding, fevers, or worsening of medical condition. Patient was counseled about treatment plan, medications, possible side effects, patientverbalized understanding. All questions were answered to the best of my ability. This discharge took greater then 30 minutes in planning, reviewing documentation, counseling the patient, and discussing with other team members." ASSESSMENT ASSESSMENT Assessment Date of Service: Sep 25, 2025 Billing Provider: SHANTE PEREZ MD Common Visit Codes: NOT BILLABLE SHANTE PEREZ MD Sep 25, 2025 14:29
== END 2025-09-25 13:30 | disposition left against medical advice (07) | DRG 254 ==
LOC: ER 04:43 → OVERFLOW 08:26 → WEST WING 17:21
PROVIDERS: ADMIT Student in an Organized Health Care Education/Training Program; ATTEND Student in an Organized Health Care Education/Training Program
DX: K61.1 Rectal abscess (principal); D17.79 Benign lipomatous neoplasm of other sites; D75.1 Secondary polycythemia; F10.10 Alcohol abuse, uncomplicated; K59.00 Constipation, unspecified; K62.89 Other specified diseases of anus and rectum; K76.0 Fatty (change of) liver, not elsewhere classified; Z53.29 Procedure and treatment not carried out because of patient's decision for other reasons; Y90.9 Presence of alcohol in blood, level not specified
CPT/HCPCS: 36415; 74177; 80048; 80053; 80061; 80076; 80307; 80320; 81001; 82306; 82607; 83036; 83605; 83690; 83735; 84100; 84443; 85025; 85610; 85730; 87040; 87086; 96374; G0378; J1885